=== PATIENT | female | born 1960 ===

== ENCOUNTER 2018-02-28 07:22 | Outpatient (CLI) | payer OTHER ==
[~2018-02-28 07:22] MED LIST: SYNTHROID125 MCG
== END 2018-02-28 07:30 | disposition home or self-care (01) ==
LOC: LAB 07:22
DX: I10 Essential (primary) hypertension (principal); E11.9 Type 2 diabetes mellitus without complications; E03.8 Other specified hypothyroidism; E78.2 Mixed hyperlipidemia; M81.0 Age-related osteoporosis without current pathological fracture

== ENCOUNTER 2018-02-28 08:02 | Outpatient (CLI) | payer OTHER | END 2018-02-28 08:05 | disposition home or self-care (01) | LOC: RAD 08:02 | DX: M12.9 Arthropathy, unspecified (principal); M19.90 Unspecified osteoarthritis, unspecified site ==

== ENCOUNTER 2018-04-20 07:31 | Outpatient (CLI) | payer OTHER | END 2018-04-20 15:52 | disposition home or self-care (01) | LOC: SONOGRAMA 07:31 → TOM 07:31 → SONOGRAMA 15:52 | DX: R10.9 Unspecified abdominal pain (principal) ==

== ENCOUNTER 2018-06-02 06:33 | Day surgery (SDC) | payer OTHER | END 2018-06-02 12:15 | disposition home or self-care (01) | LOC: AMB-ENDOS 06:33 | DX: D12.5 Benign neoplasm of sigmoid colon (principal); Z12.11 Encounter for screening for malignant neoplasm of colon ==

== ENCOUNTER 2018-11-07 08:22 | Outpatient (CLI) | payer OTHER | END 2018-11-07 08:29 | disposition home or self-care (01) | LOC: LAB 08:22 | DX: I10 Essential (primary) hypertension (principal); E11.9 Type 2 diabetes mellitus without complications; E03.8 Other specified hypothyroidism; E78.2 Mixed hyperlipidemia; N80.9 Endometriosis, unspecified; N63.10 Unspecified lump in the right breast, unspecified quadrant; N63.20 Unspecified lump in the left breast, unspecified quadrant; M81.0 Age-related osteoporosis without current pathological fracture ==

== ENCOUNTER 2019-08-28 07:14 | Outpatient (CLI) | payer OTHER | END 2019-08-28 07:23 | disposition home or self-care (01) | LOC: LAB 07:14 | DX: I10 Essential (primary) hypertension (principal); E11.9 Type 2 diabetes mellitus without complications; E03.8 Other specified hypothyroidism; E78.2 Mixed hyperlipidemia; M81.0 Age-related osteoporosis without current pathological fracture ==

== ENCOUNTER 2019-12-19 11:04 | Outpatient (CLI) | payer OTHER | END 2019-12-19 11:18 | disposition home or self-care (01) | LOC: LAB 11:04 | DX: R10.84 Generalized abdominal pain (principal) ==

== ENCOUNTER 2019-12-19 12:02 | Outpatient (CLI) | payer OTHER | END 2019-12-19 12:03 | disposition home or self-care (01) | LOC: SONOGRAMA 12:02 | DX: R10.84 Generalized abdominal pain (principal) ==